=== PATIENT | female | born 1940 | race Caucasian/White ===

== ENCOUNTER 2019-09-23 03:46 | Inpatient (IN) | payer MEDICARE, OTHER ==
[~2019-09-23] VITALS: Ht 162.6 cm; Wt 125.2 kg
--- NOTE | 2019-09-23 04:00 | NUR ---
PT BIBRA C/O R ANKLE PAIN. PT HAD GLF. -KO. PT AXO4. 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 PENDING EVAL FROM .
--- NOTE | 2019-09-23 04:05 | NUR ---
XRAY AT BEDSIDE.
--- NOTE | 2019-09-23 04:36 | NUR ---
PT C/O MODERATE PAIN IN LOWER EXT. PER VERBAL MD ORDER, WILL ADMINISTER 800MG MOTRIN PO X1 NOW
[2019-09-23] MEDS ORDERED: IBUPROFEN 400 MG TABLET ONE (04:37)
[2019-09-23] MEDS ORDERED: IBUPROFEN 400 MG TABLET PO ONE (05:00)
[2019-09-23 05:11] LABS: BASOPHILS % (AUTO) 0.5 % (0.0-2.0); EOSINOPHILS % (AUTO) 1.4 % (0.0-6.0); HEMATOCRIT 29 % (33-45); HEMOGLOBIN 9.2 g/dL (11.5-14.8); LYMPHOCYTES # (AUTO) 1.1 /CMM (0.8-4.8); MEAN CORPUSCULAR HGB CONC 32 g/dl (31.0-36.0); MEAN CORPUSCULAR VOLUME 83 fL (82-100); MONOCYTES # (AUTO) 0.6 /CMM (0.1-1.30); MONOCYTES % (AUTO) 7.6 % (2.0-12.0); NEUTROPHILS # (AUTO) 6.2 /CMM (1.8-8.9); NEUTROPHILS % (AUTO) 76.5 % (43.0-81.0); PLATELET COUNT (AUTO) 244 /CMM (150-450); RED BLOOD CELL COUNT(AUTO) 3.45 MIL/uL (4.0-5.2); WHITE BLOOD COUNT (AUTO) 8.1 K/uL (4.3-11.0)
[2019-09-23 05:15] LABS: CALCIUM, SERUM 8.9 mg/dL (8.5-10.1); CARBON DIOXIDE 26 mmol/L (21-32); CHLORIDE 108 mmol/L (98-107); CREATININE 1.1 mg/dL (0.6-1.3); GLUCOSE 130 mg/dL (74-106); POTASSIUM 4.3 mmol/L (3.5-5.1); SODIUM SERUM 142 mmol/L (136-145); UREA NITROGEN, BLOOD 37 mg/dL (7-18)
--- NOTE | 2019-09-23 05:30 | NUR ---
DR. LYONS ON THE PHONE WITH [facility] [employer] Addendum: 09/23/19 at 0543 by HELEN Amendment undany in EDM - 09/23/19 at [address] DAT BRADY [employer] MAIL [employer]ER Addendum: 09/23/19 at 0544 by HELEN MAUREEN PANDA [facility] [employer]
--- NOTE | 2019-09-23 05:32 | NUR ---
PT RESTING IN BED, NAD NOTED. WILL CONTINUE TO MONITOR.
--- NOTE | 2019-09-23 05:34 | NUR ---
CALLED NURSING SUP FOR A BED
[2019-09-23] MEDS ORDERED: Z GUARD REMEDY 2 OZ OINT TP PRN (06:00)
[2019-09-23] MEDS ORDERED: ACETAMINOPHEN 325 MG TABLET PO PRN (06:00)
[2019-09-23] MEDS ORDERED: ZOLPIDEM TARTRATE 5 MG TABLET PO PRN (06:00)
[2019-09-23] MEDS ORDERED: ONDANSETRON HCL/PF 4 MG/2 ML VIAL IVP PRN (06:00)
[2019-09-23] MEDS ORDERED: MAG HYDROX/AL HYDROX/SIMETH 30 ML UDC PO PRN (06:00)
--- NOTE | 2019-09-23 06:38 | NUR ---
PT RESTING IN BED, NAD NOTED. WILL CONTINUE TO MONITOR.
--- NOTE | 2019-09-23 07:23 | NUR ---
REPORT GIVEN TO WES SANDHU FOR [facility].
--- NOTE | 2019-09-23 07:25 | NUR ---
RECEIVED ENDORSEMENT FROM [facility]
[2019-09-23] MEDS ORDERED: ERGO500040 PO (08:16)
[2019-09-23] MEDS ORDERED: CLON0.2T PO (08:16)
[2019-09-23] MEDS ORDERED: IBUP-1955 PO (08:16)
[2019-09-23] MEDS ORDERED: GLIP10TA11 PO (08:16)
[2019-09-23] MEDS ORDERED: PREG75CA76 PO (08:16)
[2019-09-23] MEDS ORDERED: ESOM40CA52 PO (08:16)
[2019-09-23] MEDS ORDERED: ROSU40TA23 PO (08:16)
[2019-09-23] MEDS ORDERED: CARV12.52 PO (08:16)
[2019-09-23] MEDS ORDERED: OXYB5TAB16 PO (08:16)
[2019-09-23] MEDS ORDERED: ASPI-1152 PO (08:16)
[2019-09-23] MEDS ORDERED: BENA10TA11 PO (08:16)
[2019-09-23] MEDS ORDERED: INSU100V7 SQ (08:18)
--- NOTE | 2019-09-23 08:20 | NUR ---
REPORT GIVEN TO SHERRI OF [facility]
--- NOTE | 2019-09-23 09:05 | NUR ---
RN NOTES Patient received on room air, no sob noted, patient denies pain at this time. Patients vital sign stable. L AC 18 patent at this time. Bed at the lowest setting, call light within reach, side rails up x2.
[2019-09-23] MEDS ORDERED: CLONIDINE HCL 0.1 MG TABLET PO PRN (09:30)
[2019-09-23] MEDS ORDERED: OXYBUTYNIN CHLORIDE 5 MG TABLET PO PRN (09:30)
[2019-09-23] MEDS: HYDROCODONE/APAP 5/325MG 1 EACH TABLET PO PRN (09:41)
[2019-09-23] MEDS: PREGABALIN 25 MG CAPSULE PO SCH (09:42)
[2019-09-23 16:00] VITALS: BP 164/103
[2019-09-23] MEDS: CARVEDILOL 12.5 MG TABLET PO SCH (16:24)
[2019-09-23] MEDS: IBUPROFEN 600 MG TABLET PO SCH (16:24)
[2019-09-23] MEDS ORDERED: BLOOD SUGAR DIAGNOSTIC 1 EACH STRIP IN SCH (17:30)
[2019-09-23] MEDS: glipiZIDE 10 MG TABLET PO SCH (17:37)
--- NOTE | 2019-09-23 18:28 | NUR ---
RN CLOSING NOTES Patient remains on room air, no sob noted, patient shows no s/s of pain at this time. Patient recently got a blood sugar check of 330 and MD was made aware, moderate sliding scale order and is awaiting for insulin. L AC 18 no IVF at this time. Surgery scheduled tomorrow at 1600. All consent form signed. Bed at the lowest setting, call light within reach, side rails up x2. Will give report to noC RN for [facility] bedside.
[2019-09-23] MEDS ORDERED: DEXTROSE 50%-WATER 50 ML DISP.SYRIN IV PRN (18:30)
--- NOTE | 2019-09-23 19:30 | NUR ---
MS RN OPENING NOTES PATIENT AWAKE AND RESTING IN BED. ALERT & ORIENTED X 4. SWAZI SPEAKING ONLY. NO S/S OF ACUTE RESPIRATORY DISTRESS. NO COMPLAINTS OF PAIN AT THIS TIME. RIGHT ANKLE OFFLOADED WITH ONE PILLOW. BED LOCKED, SIDE RAILS X 2, SEMI-WILSON'S POSITION, CALL LIGHT WITHIN REACH. WILL CONTINUE TO MONITOR.
[2019-09-23 20:00] VITALS: BP 147/76
[2019-09-23] MEDS: *INSULIN REGULAR(HUMULIN R)HUM 100 UNIT/ML VIAL SQ PRN (20:42)
[2019-09-23 20:47] VITALS: BP 147/78
[2019-09-23] MEDS: BLOOD SUGAR DIAGNOSTIC 1 EACH STRIP VI SCH (22:13)
[2019-09-23] MEDS: INSULIN GLARGINE, 100 UNIT/ML CARTRIDGE SQ SCH (22:18)
[2019-09-24] MEDS: HYDROCODONE/APAP 5/325MG 1 EACH TABLET PO PRN ×3 (01:56→22:39)
--- NOTE | 2019-09-24 01:56 | NUR ---
MS RN NOTES PATIENT COMPLAINING OF RIGHT LEG PAIN, RATED 8/10. ADMINISTERED PRN 1 TAB NORCO 5-325 PER PATIENT'S REQUEST. CALL LIGHT WITHIN REACH. WILL CONTINUE TO MONITOR EFFECTIVENESS OF PAIN MEDICATION.
[2019-09-24 06:20] LABS: BASOPHILS % (AUTO) 0.5 % (0.0-2.0); EOSINOPHILS % (AUTO) 2.1 % (0.0-6.0); HEMATOCRIT 26 % (33-45); HEMOGLOBIN 8.5 g/dL (11.5-14.8); LYMPHOCYTES # (AUTO) 1.4 /CMM (0.8-4.8); LYMPHOCYTES % (AUTO) 24.1 % (20.0-44.0); MEAN CORPUSCULAR HGB CONC 32 g/dl (31.0-36.0); MEAN CORPUSCULAR VOLUME 82 fL (82-100); MONOCYTES # (AUTO) 0.6 /CMM (0.1-1.30); NEUTROPHILS # (AUTO) 3.6 /CMM (1.8-8.9); NEUTROPHILS % (AUTO) 62.3 % (43.0-81.0); PLATELET COUNT (AUTO) 218 /CMM (150-450); RED BLOOD CELL COUNT(AUTO) 3.19 MIL/uL (4.0-5.2); WHITE BLOOD COUNT (AUTO) 5.7 K/uL (4.3-11.0)
[2019-09-24 06:33] LABS: CALCIUM, SERUM 8.3 mg/dL (8.5-10.1); CREATININE 1.2 mg/dL (0.6-1.3); MAGNESIUM 1.6 mg/dL (1.8-2.4); PHOSPHORUS 4.2 mg/dL (2.5-4.9); POTASSIUM 4.3 mmol/L (3.5-5.1)
--- NOTE | 2019-09-24 06:50 | NUR ---
MS RN CLOSING NOTES PATIENT SLEEPING IN BED, EASY TO AWAKEN. ALERT & ORIENTED X 4. ON ROOM AIR. CONSENTS FOR RIGHT TIBIAL ORIF SIGNED AND PLACED IN CHART. RIGHT LEG ELEVATED ON PILLOW. NO S/S OF ACUTE RESPIRATORY DISTRESS AND NO COMPLAINTS OF PAIN AT THIS TIME. IV ON RIGHT HAND, SIZE 20, INTACT & PATENT, HEP LOCKED. BED LOCKED, SEMI-WILSON'S POSITION, SIDE RAILS X2, CALL LIGHT WITHIN REACH. WILL ENDORSE TO DAY SHIFT NURSE TO FOLLOW PLAN OF CARE
[2019-09-24] MEDS: BLOOD SUGAR DIAGNOSTIC 1 EACH STRIP VI SCH ×4 (06:59→22:06)
--- NOTE | 2019-09-24 07:13 | NUR ---
MS RN NOTES PATIENT COMPLAINING OF RIGHT ANKLE PAIN, RATED 8/10. PER PATIENT'S REQUEST ADMINISTERED PRN NORCO 5/325. CALL LIGHT WITHIN REACH.
--- NOTE | 2019-09-24 07:26 | NUR ---
RN OPENING NOTES Patient received on room air, no sob noted, patient shows no s/s of pain at this time, remains a/o x4. ORIF scheduled at 1800. NPO after breakfast. Bed at the lowest setting, call light within reach, side rails up x2.
[2019-09-24 08:00] VITALS: BP 128/69
[2019-09-24] MEDS: PANTOPRAZOLE 40 MG TABLET.DR PO SCH (08:51)
[2019-09-24] MEDS: BENAZEPRIL HCL 10 MG TABLET PO SCH (08:52)
[2019-09-24] MEDS: CARVEDILOL 12.5 MG TABLET PO SCH ×2 (08:52→17:00)
[2019-09-24] MEDS: ATORVASTATIN 40 MG TABLET PO SCH (08:53)
[2019-09-24] MEDS: glipiZIDE 10 MG TABLET PO SCH ×2 (08:53→17:00)
[2019-09-24] MEDS: PREGABALIN 25 MG CAPSULE PO SCH (08:53)
[2019-09-24] MEDS: ASPIRIN EC 81 MG TABLET.DR PO SCH (08:53)
[2019-09-24] MEDS: IBUPROFEN 600 MG TABLET PO SCH ×2 (08:57→17:00)
[2019-09-24] MEDS ORDERED: ERGOCALCIFEROL (VITAMIN D 2) 50,000 UNIT CAPSULE PO SCH (09:00)
[2019-09-24] MEDS: Magnesium 1GM/D5W 100ML PREMIX 100 ML IV SCH ×2 (10:14→11:23)
[2019-09-24 16:00] VITALS: BP 141/70
--- NOTE | 2019-09-24 17:51 | NUR ---
RN CLOSING NOTES Patient awaiting surgery at this time. No sob noted, patient denies pain at this time. NPO except medications. Vital signs stable. Bed at the lowest setting, call light within reach, side rails up x2. Will give report to NOC RN for [facility] bedside.
--- NOTE | 2019-09-24 19:42 | NUR ---
MS RN OPENING NOTES Patient received resting in bed with family at bedside a/o x4, Emirati speaking. Stable on RA breathing even and unlabored, no signs of SOB. No current complaints of pain and no acute distress noted. IV located on right hand patent and intact. Safety precautions in place with bed in lowest position, breaks on, and call light within reach. Will continue to monitor.
[2019-09-24 20:00] VITALS: BP 147/77
[2019-09-24 20:47] VITALS: BP 144/77
[2019-09-24] MEDS: INSULIN GLARGINE, 100 UNIT/ML CARTRIDGE SQ SCH (22:36)
[2019-09-24] MEDS: *INSULIN REGULAR(HUMULIN R)HUM 100 UNIT/ML VIAL SQ PRN (22:39)
[2019-09-25] MEDS: HYDROCODONE/APAP 5/325MG 1 EACH TABLET PO PRN ×2 (05:22→14:43)
--- NOTE | 2019-09-25 06:01 | NUR ---
MS RN CLOSING NOTES PATIENT IS CURRENTLY RESTING IN BED, A/O X3 HONDURAN SPEAKING ONLY. PATIENT STABLE ON ROOM AIR, BREATHING EVEN AND UNLABORED. NO SOB, NO ACUTE DISTRESS NOTED. NO CURRENT COMPLAINTS OF PAIN OR DISCOMFORT. PATIENT HAS RIGHT ANKLE FRACTURE, ELEVATED BY PILLOW. IV LOCATED ON R HAND G#20. ALL NEEDS MET, PATIENT WAS KEPT CLEAN AND DRY. SAFETY PRECAUTIONS IN PLACE WITH BED IN LOWEST POSITION, BREAKS ON, AND CALL LIGHT WITHIN REACH. WILL ENDORSE TO ONCOMING SHIFT ABOUT [facility].
[2019-09-25 06:14] LABS: BASOPHILS % (AUTO) 0.4 % (0.0-2.0); HEMATOCRIT 27 % (33-45); HEMOGLOBIN 8.7 g/dL (11.5-14.8); LYMPHOCYTES # (AUTO) 1.4 /CMM (0.8-4.8); MEAN CORPUSCULAR HGB CONC 33 g/dl (31.0-36.0); MEAN CORPUSCULAR VOLUME 83 fL (82-100); MONOCYTES # (AUTO) 0.5 /CMM (0.1-1.30); MONOCYTES % (AUTO) 8.2 % (2.0-12.0); NEUTROPHILS # (AUTO) 4.4 /CMM (1.8-8.9); NEUTROPHILS % (AUTO) 67.4 % (43.0-81.0); PLATELET COUNT (AUTO) 228 /CMM (150-450); WHITE BLOOD COUNT (AUTO) 6.5 K/uL (4.3-11.0)
[2019-09-25 06:19] LABS: CALCIUM, SERUM 8.3 mg/dL (8.5-10.1); CREATININE 1.3 mg/dL (0.6-1.3); MAGNESIUM 2.2 mg/dL (1.8-2.4); POTASSIUM 4.8 mmol/L (3.5-5.1)
--- NOTE | 2019-09-25 07:00 | NUR ---
MS/RN Opening note Patient received AO x 3, able to response all stimuli. Respiratory even and unlabored, in room air. c/o pain on right ankle, administered Motrin and no further c/o pain on right ankle, and elevated by pillow. Skin is worm to touch, clean/dry. IV site intact. Kept low position of bed with elevated HOB. Call light within reach, will continue to monitor.
[2019-09-25] MEDS: PANTOPRAZOLE 40 MG TABLET.DR PO SCH (07:30)
[2019-09-25 07:54] VITALS: BP 153/70
[2019-09-25] MEDS: BLOOD SUGAR DIAGNOSTIC 1 EACH STRIP VI SCH ×4 (07:57→21:12)
[2019-09-25 08:00] VITALS: BP 153/70
[2019-09-25] MEDS: CARVEDILOL 12.5 MG TABLET PO SCH ×2 (09:00→17:13)
[2019-09-25] MEDS: BENAZEPRIL HCL 10 MG TABLET PO SCH ×2 (09:00→10:51)
[2019-09-25] MEDS: IBUPROFEN 600 MG TABLET PO SCH ×3 (09:00→17:12)
[2019-09-25] MEDS: PREGABALIN 25 MG CAPSULE PO SCH (09:00)
[2019-09-25] MEDS: glipiZIDE 10 MG TABLET PO SCH ×2 (09:00→17:09)
[2019-09-25] MEDS: ASPIRIN EC 81 MG TABLET.DR PO SCH (09:00)
[2019-09-25] MEDS: ATORVASTATIN 40 MG TABLET PO SCH (09:00)
[2019-09-25] MEDS ORDERED: MORPHINE SULFATE INJ 2 MG/ML DISP.SYRIN IM PRN (10:30)
[2019-09-25] MEDS: MAGNESIUM HYDROXIDE 30 ML UDC PO PRN (10:51)
[2019-09-25] MEDS: *INSULIN REGULAR(HUMULIN R)HUM 100 UNIT/ML VIAL SQ PRN ×2 (12:06→21:19)
--- NOTE | 2019-09-25 14:30 | NUR ---
Seen by Dr. Anderson who spoke with family discussed about surgery or orthopedic cast intervention.
--- NOTE | 2019-09-25 15:20 | NUR ---
Patient in placed fiberglass cast on right leg done by Dr. lucas. Pt denies pain or discomfort of right leg, no s/s of compartment syndrome, warm to touch on right toes. Pt will take CAT SCAN tonight. Will continue to monitor.
[2019-09-25 16:00] VITALS: BP 135/70
[2019-09-25] MEDS: INSULIN REGULAR, HUMAN 100 UNIT/ML 3 ML VIAL SQ PRN (17:12)
--- NOTE | 2019-09-25 18:53 | NUR ---
MS/RN Closing note Pt in bed comfortably, denies pain or any discomfort. Kept elevated right leg by blankets. Skin is warm to touch, clean/dry, christopher care provided. Respiratory even and unlabored in room air. Call light within reach, will continue to monitor.
--- NOTE | 2019-09-25 19:10 | NUR ---
MS RN RECEIVE PT IN BED A/O X 3, STABLE AND NOT IN DISTRESS, CAST IN PLACE IN R LEG. SAFETY MEASURES IN PLACE. WILL CONTINUE TO MONITOR.
[2019-09-25 19:55] VITALS: BP 126/63
[2019-09-25 20:03] VITALS: BP 126/63
[2019-09-25] MEDS: INSULIN GLARGINE, 100 UNIT/ML CARTRIDGE SQ SCH (21:17)
[2019-09-26] MEDS: HYDROCODONE/APAP 5/325MG 1 EACH TABLET PO PRN ×2 (00:13→20:56)
[2019-09-26] MEDS: BLOOD SUGAR DIAGNOSTIC 1 EACH STRIP VI SCH ×4 (06:04→21:04)
[2019-09-26] MEDS: INSULIN REGULAR, HUMAN 100 UNIT/ML 3 ML VIAL SQ PRN ×3 (06:04→17:14)
--- NOTE | 2019-09-26 06:32 | NUR ---
PT SLEPT WELL. NO SOB, NO S/S OF DISTRESS, MONITORED FOR PAIN. NO C/O PAIN AT THIS TIME. FIBERGLASS CAST ON RIGHT LEG WITH GOOD CIRCULATION. NEEDS ATTENDED AND ANTICIPATED, KEPT CLEAN, DRY AND COMFORTABLE. AM CARE RENDERED. SAFETY MEASURES AT ALL TIMES. WILL ENDORSE POC Addendum: 09/26/19 at 0638 by DALLAS CUELLO RN ASSISTED REPOSITION EVERY 2 HOURS.
[2019-09-26 06:34] LABS: BASOPHILS % (AUTO) 0.4 % (0.0-2.0); EOSINOPHILS % (AUTO) 2.4 % (0.0-6.0); HEMATOCRIT 26 % (33-45); HEMOGLOBIN 8.4 g/dL (11.5-14.8); LYMPHOCYTES % (AUTO) 17.4 % (20.0-44.0); MEAN CORPUSCULAR HGB CONC 32 g/dl (31.0-36.0); MEAN CORPUSCULAR VOLUME 83 fL (82-100); MONOCYTES # (AUTO) 0.5 /CMM (0.1-1.30); NEUTROPHILS # (AUTO) 4.2 /CMM (1.8-8.9); NEUTROPHILS % (AUTO) 70.8 % (43.0-81.0); PLATELET COUNT (AUTO) 230 /CMM (150-450); RED BLOOD CELL COUNT(AUTO) 3.16 MIL/uL (4.0-5.2)
[2019-09-26 07:06] LABS: CALCIUM, SERUM 8.3 mg/dL (8.5-10.1); CREATININE 1.2 mg/dL (0.6-1.3); MAGNESIUM 2.2 mg/dL (1.8-2.4); PHOSPHORUS 3.2 mg/dL (2.5-4.9); POTASSIUM 5.3 mmol/L (3.5-5.1)
[2019-09-26] MEDS: PANTOPRAZOLE 40 MG TABLET.DR PO SCH (07:19)
--- NOTE | 2019-09-26 07:29 | NUR ---
MS/RN - Assessment Patient is awake, A/O x 4, here for right tibial fracture, long leg cast in place, elevated on pillows, denies pain at this time, stable on room air. Per Dr. Anderson, if CT shows intraarticular fracture, may need surgical intervention. If not, and alignment on CT is acceptable, can proceed with nonoperative management with x-rays every week to check fracture alignment, he discussed this with patient and her family. They understand. She has diabetes and is at great risk for surgical wound breakdown. if we can avoid surgery that would be preferred. Will follow up after CT scan. The family understands the surgical plan will hinge on CT results. Skin on BLE is warm to touch, denies numbness or tingling sensation on both lower ext, non-weight bearing on RLE. Saline lock on the right hand is patent, intact, with no signs of infiltration. Labs reviewed, noted with high potassium, will notify Md. Fall and aspiration precautions maintained. All needs attended. Will continue with current plan of care.
[2019-09-26 08:00] VITALS: BP 149/85
[2019-09-26] MEDS: glipiZIDE 10 MG TABLET PO SCH ×2 (08:29→16:40)
[2019-09-26] MEDS: CARVEDILOL 12.5 MG TABLET PO SCH ×2 (08:30→16:56)
[2019-09-26] MEDS: PREGABALIN 25 MG CAPSULE PO SCH (08:30)
[2019-09-26] MEDS: BENAZEPRIL HCL 10 MG TABLET PO SCH (08:30)
[2019-09-26] MEDS: IBUPROFEN 600 MG TABLET PO SCH ×2 (08:30→16:40)
[2019-09-26] MEDS: ATORVASTATIN 40 MG TABLET PO SCH (08:30)
[2019-09-26] MEDS: ASPIRIN EC 81 MG TABLET.DR PO SCH (08:30)
[2019-09-26] MEDS: MAGNESIUM HYDROXIDE 30 ML UDC PO PRN (10:50)
--- NOTE | 2019-09-26 11:00 | NUR ---
MS/RN - Notes Patient is c/o no bowel movement x 4 days now, MOM given as ordered.
[2019-09-26 16:00] VITALS: BP 159/93
[2019-09-26] MEDS ORDERED: NA PHOS,M-B/NA PHOS,DI-BA 1 EA ENEMA RC PRN (16:30)
--- NOTE | 2019-09-26 18:28 | NUR ---
MS/RN - End of shift summary No significant change in condition seen, pain well controlled, stable on room air, had a large bowel movement today. Will continue with current plan of care.
--- NOTE | 2019-09-26 19:18 | NUR ---
MS RN RECEIVE PT IN BED WATCHING TV A/O X 3, STABLE AND NOT IN DISTRESS, CAST IN PLACE IN R LEG. ELEVATED LEG WITH BLANKETS. SAFETY MEASURES IN PLACE. WILL CONTINUE TO MONITOR.
[2019-09-26 20:00] VITALS: BP 140/74
[2019-09-26] MEDS: INSULIN GLARGINE, 100 UNIT/ML CARTRIDGE SQ SCH (21:09)
[2019-09-26] MEDS: *INSULIN REGULAR(HUMULIN R)HUM 100 UNIT/ML VIAL SQ PRN (21:10)
--- NOTE | 2019-09-27 01:01 | NUR ---
MS RN NOTES RECEIVED A CALL FROM [facility], REQUESTING FOR RECORDS (FACESHEET) OF THE PATIENT REGARDING POSSIBLE TRANSFER TO [facility]. PT SLEEPING AT THIS TIME. UNABLE TO PROVIDE AUTHORIZATION AT THIS TIME. WILL F/U WITH CASE MANAGEMENT REGARDING POSSIBLE TRANSFER. EXERCISE TEACHER AWARE.
[2019-09-27] MEDS: HYDROCODONE/APAP 5/325MG 1 EACH TABLET PO PRN ×2 (03:38→20:27)
[2019-09-27] MEDS: BLOOD SUGAR DIAGNOSTIC 1 EACH STRIP VI SCH ×4 (06:06→21:20)
[2019-09-27] MEDS: INSULIN REGULAR, HUMAN 100 UNIT/ML 3 ML VIAL SQ PRN ×3 (06:07→17:50)
--- NOTE | 2019-09-27 06:10 | NUR ---
PT ASLEEP AND EASILY AWAKEN, NO SIGNIFICANT CHANGES, PAIN WELL CONTROLLED. NO C/O PAIN AT THIS TIME. AM CARE RENDERED. STABLE. CAST ON RIGHT LEG WITH GOOD CIRCULATION. KEPT CLEAN, DRY AND COMFORTABLE. NEEDS ATTENDED AND ANTICIPATED AT ALL TIMES. ASSISTED REPOSITION EVERY 2 HOURS. GOOD SKIN CARE AT ALL TIMES. OFFLOAD HEELS AND ELBOWS. SAFETY MEASURES AT ALL TIMES. WILL ENDORSE POC
[2019-09-27 06:43] LABS: BASOPHILS % (AUTO) 0.6 % (0.0-2.0); EOSINOPHILS % (AUTO) 2.7 % (0.0-6.0); HEMATOCRIT 25 % (33-45); HEMOGLOBIN 8.2 g/dL (11.5-14.8); LYMPHOCYTES # (AUTO) 1.2 /CMM (0.8-4.8); LYMPHOCYTES % (AUTO) 22.7 % (20.0-44.0); MEAN CORPUSCULAR HGB CONC 33 g/dl (31.0-36.0); MEAN CORPUSCULAR VOLUME 83 fL (82-100); MONOCYTES # (AUTO) 0.4 /CMM (0.1-1.30); NEUTROPHILS # (AUTO) 3.6 /CMM (1.8-8.9); PLATELET COUNT (AUTO) 231 /CMM (150-450); RED BLOOD CELL COUNT(AUTO) 3.04 MIL/uL (4.0-5.2); WHITE BLOOD COUNT (AUTO) 5.5 K/uL (4.3-11.0)
[2019-09-27 07:21] LABS: CALCIUM, SERUM 8.4 mg/dL (8.5-10.1); CREATININE 1.1 mg/dL (0.6-1.3); MAGNESIUM 2.3 mg/dL (1.8-2.4); POTASSIUM 5.2 mmol/L (3.5-5.1)
--- NOTE | 2019-09-27 07:30 | NUR ---
alert and oriented 4,non-british speaking and very cooperative.
[2019-09-27 08:00] VITALS: BP 155/86
[2019-09-27] MEDS: IBUPROFEN 600 MG TABLET PO SCH ×2 (08:28→17:29)
[2019-09-27] MEDS: ASPIRIN EC 81 MG TABLET.DR PO SCH (08:28)
[2019-09-27] MEDS: PREGABALIN 25 MG CAPSULE PO SCH (08:28)
[2019-09-27] MEDS: glipiZIDE 10 MG TABLET PO SCH ×2 (08:29→17:29)
[2019-09-27] MEDS: PANTOPRAZOLE 40 MG TABLET.DR PO SCH (08:29)
[2019-09-27] MEDS: BENAZEPRIL HCL 10 MG TABLET PO SCH (08:29)
[2019-09-27] MEDS: ATORVASTATIN 40 MG TABLET PO SCH (08:29)
[2019-09-27] MEDS: CARVEDILOL 12.5 MG TABLET PO SCH ×2 (08:30→17:00)
[2019-09-27] MEDS ORDERED: DEXTROSE 50%-WATER 50 ML DISP.SYRIN IVP ONE (10:30)
[2019-09-27] MEDS ORDERED: Calcium Gluconate 1GM/10ML 4.65 MEQ in IV NS 0.9% 40 ML IV ONE (10:30)
[2019-09-27] MEDS ORDERED: INSULIN REGULAR, HUMAN 100 UNIT/ML 3 ML VIAL IV ONE (10:30)
--- NOTE | 2019-09-27 10:30 | NUR ---
family at bedside all day.
[2019-09-27 13:00] VITALS: BP 110/56
--- NOTE | 2019-09-27 13:00 | NUR ---
HAD INSULIN,DEXTROSE AND CA GLUCONATE IV FOR PURPOSE OF LOWERING POTASSIUM.
--- NOTE | 2019-09-27 13:00 | NUR ---
iv leaking,removed and restarted in rt. inner hand with #22 angio.pt. tolerated well.
[2019-09-27 16:00] VITALS: BP 112/61
--- NOTE | 2019-09-27 18:41 | NUR ---
AT THIS TIME STILL AWAITING ARRANGEMENTS TO BE MADE FOR PT. TRANSFER.AWAITING ACCEPTANCE.
[2019-09-27] MEDS ORDERED: NA P133E RC (19:11)
[2019-09-27] MEDS ORDERED: *INS REG SQ (19:11)
[2019-09-27] MEDS ORDERED: INSU100V28 SQ (19:11)
[2019-09-27] MEDS ORDERED: MAGN400O6 PO (19:11)
[2019-09-27] MEDS ORDERED: ACET325T53 PO (19:11)
[2019-09-27] MEDS ORDERED: ONDA4VIA23 IVP (19:11)
[2019-09-27] MEDS ORDERED: MAG30ORA PO (19:11)
[2019-09-27] MEDS ORDERED: Morphine Sulfate Inj IM (19:11)
[2019-09-27 19:30] VITALS: BP 126/65
--- NOTE | 2019-09-27 19:30 | NUR ---
MS RN NOTES PATIENT IN BED, AWAKE, ALERT AND ORIENTED X 4. BREATHING EVEN AND UNLABORED ON ROOM AIR. DENIES ACUTE RESPIRATORY DISTRESS NO ACUTE PAIN. IV ON RIGHT HAND 22G SALINE LOCK. ITS CLEAN, DRY AND INTACT. NO REDNESS NO INFILTRATION. SAFETY PRECAUTIONS IN PLACE. BED IN LOWEST POSITION, LOCKED, AND CALL LIGHT KEPT WITHIN REACH. WILL CONTINUE TO MONITOR.
[2019-09-27 20:00] VITALS: BP 126/65
--- NOTE | 2019-09-27 20:24 | NUR ---
MS RN NOTES PATIENT COMPLAINED OF THROBBING PAIN 5/10. PATIENT GIVEN NORCO 2023 PRN. WILL CONTINUE TO MONITOR.
[2019-09-27] MEDS: INSULIN GLARGINE, 100 UNIT/ML CARTRIDGE SQ SCH ×2 (21:21→21:38)
[2019-09-27] MEDS: *INSULIN REGULAR(HUMULIN R)HUM 100 UNIT/ML VIAL SQ PRN ×2 (21:24→21:38)
--- NOTE | 2019-09-28 00:20 | NUR ---
MS RN NOTES RECEIVED CALL FROM [facility] FROM [facility]ACEMENT MANAGEMENT. NO AVAILABLE BEDS, WILL CALL TOMORROW FOR UPDATES. WILL FOLLOW UP.
[2019-09-28 06:43] LABS: BASOPHILS % (AUTO) 0.5 % (0.0-2.0); EOSINOPHILS % (AUTO) 3.9 % (0.0-6.0); HEMATOCRIT 27 % (33-45); HEMOGLOBIN 8.7 g/dL (11.5-14.8); LYMPHOCYTES # (AUTO) 1.1 /CMM (0.8-4.8); MEAN CORPUSCULAR HGB CONC 32 g/dl (31.0-36.0); MEAN CORPUSCULAR VOLUME 83 fL (82-100); MONOCYTES # (AUTO) 0.4 /CMM (0.1-1.30); NEUTROPHILS # (AUTO) 3.4 /CMM (1.8-8.9); NEUTROPHILS % (AUTO) 65.6 % (43.0-81.0); PLATELET COUNT (AUTO) 259 /CMM (150-450); RED BLOOD CELL COUNT(AUTO) 3.24 MIL/uL (4.0-5.2); WHITE BLOOD COUNT (AUTO) 5.1 K/uL (4.3-11.0)
[2019-09-28 07:00] LABS: CALCIUM, SERUM 8.5 mg/dL (8.5-10.1); CREATININE 1.2 mg/dL (0.6-1.3); MAGNESIUM 2.2 mg/dL (1.8-2.4); PHOSPHORUS 4.5 mg/dL (2.5-4.9); POTASSIUM 5.4 mmol/L (3.5-5.1)
--- NOTE | 2019-09-28 07:31 | NUR ---
MS RN NOTES PATIENT COMPLAINING OF PAIN 7/10 ON R FOOT. GIVEN NORCO PRN AT 0731. WILL CONTINUE TO MONITOR.
[2019-09-28] MEDS: HYDROCODONE/APAP 5/325MG 1 EACH TABLET PO PRN ×2 (07:33→15:39)
--- NOTE | 2019-09-28 07:45 | NUR ---
MS RN NOTES PATIENT IN BED, AWAKE, ALERT AND ORIENTED X 4. BREATHING EVEN AND UNLABORED ON ROOM AIR. DENIES ACUTE RESPIRATORY DISTRESS NO ACUTE PAIN. IV ON RIGHT HAND 22G SALINE LOCK. ITS CLEAN, DRY AND INTACT. NO REDNESS NO INFILTRATION. ALL DUE MEDICATIONS GIVEN. SAFETY PRECAUTIONS IN PLACE. BED IN LOWEST POSITION, LOCKED, AND CALL LIGHT KEPT WITHIN REACH. WILL ENDORSE TO ONCOMING NURSE.
[2019-09-28 08:00] VITALS: BP 156/76
[2019-09-28] MEDS: ATORVASTATIN 40 MG TABLET PO SCH (08:35)
[2019-09-28] MEDS: glipiZIDE 10 MG TABLET PO SCH ×2 (08:35→18:39)
[2019-09-28] MEDS: CARVEDILOL 12.5 MG TABLET PO SCH ×2 (08:37→18:40)
[2019-09-28] MEDS: BENAZEPRIL HCL 10 MG TABLET PO SCH (08:38)
[2019-09-28] MEDS: IBUPROFEN 600 MG TABLET PO SCH ×2 (08:38→18:40)
[2019-09-28] MEDS: ASPIRIN EC 81 MG TABLET.DR PO SCH (08:43)
[2019-09-28] MEDS: PANTOPRAZOLE 40 MG TABLET.DR PO SCH (08:43)
[2019-09-28] MEDS: PREGABALIN 25 MG CAPSULE PO SCH (08:43)
[2019-09-28] MEDS: BLOOD SUGAR DIAGNOSTIC 1 EACH STRIP VI SCH ×4 (08:46→22:11)
--- NOTE | 2019-09-28 11:21 | NUR ---
MS/RN RECIEVED PATIENT IN BED, AWAKE, ALERT AND ORIENTED X 4. BREATHING EVEN AND UNLABORED ON ROOM AIR. DENIES ACUTE RESPIRATORY DISTRESS NO ACUTE PAIN. IV ON RIGHT HAND 22G SALINE LOCK. ITS CLEAN, DRY AND INTACT. NO REDNESS NO INFILTRATION. ALL DUE MEDICATIONS GIVEN. SAFETY PRECAUTIONS IN PLACE. BED IN LOWEST POSITION, LOCKED, AND CALL LIGHT KEPT WITHIN REACH.
[2019-09-28] MEDS: INSULIN REGULAR, HUMAN 100 UNIT/ML 3 ML VIAL SQ PRN (13:01)
[2019-09-28 16:00] VITALS: BP 137/59
[2019-09-28] MEDS: *INSULIN REGULAR(HUMULIN R)HUM 100 UNIT/ML VIAL SQ PRN ×2 (18:52→22:16)
--- NOTE | 2019-09-28 19:22 | NUR ---
MS/RN PATIENT IN BED, AWAKE, ALERT AND ORIENTED X 4. BREATHING EVEN AND UNLABORED ON ROOM AIR. DENIES ACUTE RESPIRATORY DISTRESS NO ACUTE PAIN. ALL DUE MEDICATIONS GIVEN. SAFETY PRECAUTIONS IN PLACE. BED IN LOWEST POSITION, LOCKED, AND CALL LIGHT KEPT WITHIN REACH. WILL ENDORSE TO ONCOMING NURSE.
[2019-09-28 20:00] VITALS: BP 147/76
[2019-09-28] MEDS: INSULIN GLARGINE, 100 UNIT/ML CARTRIDGE SQ SCH (22:00)
--- NOTE | 2019-09-28 23:53 | NUR ---
MS RN NOTES PATIENT DISCHARGE TO [facility]. PATIENT IS BREATHING EVEN AND UNLABORED ON ROOM AIR. DENIES ACUTE RESPIRATORY DISTRESS, NO ACUTE PAIN. IV IN RIGHT HAND 22G, CLEAN DRY AND INTACT. NO SIGNS OF REDNESS, NO INFILTRATION. ID TAKEN OFF. LEFT WITH AMBULANCE. NO NEW SKIN BREAKDOWNS, NO MISSING BELONGINGS. DOC AWARE OF DISCHARGE.
== END 2019-09-28 22:50 | disposition short-term general hospital (02) | DRG 563 ==
LOC: ER 03:48 → MED 07:51
PROVIDERS: ADMIT Family Medicine; ATTEND Registered Nurse
DX: S82.861A Displaced Maisonneuve's fracture of right leg, initial encounter for closed fracture (principal); E66.9 Obesity, unspecified; S82.251A Displaced comminuted fracture of shaft of right tibia, initial encounter for closed fracture; W06.XXXA Fall from bed, initial encounter; Y92.003 Bedroom of unspecified non-institutional (private) residence as the place of occurrence of the external cause; Z79.4 Long term (current) use of insulin; K21.9 Gastro-esophageal reflux disease without esophagitis; N32.81 Overactive bladder; E11.9 Type 2 diabetes mellitus without complications; D63.8 Anemia in other chronic diseases classified elsewhere; E11.65 Type 2 diabetes mellitus with hyperglycemia; E78.5 Hyperlipidemia, unspecified; E87.5 Hyperkalemia; I10 Essential (primary) hypertension; M17.10 Unilateral primary osteoarthritis, unspecified knee; M85.80 Other specified disorders of bone density and structure, unspecified site; M19.079 Primary osteoarthritis, unspecified ankle and foot; S82.63XA Displaced fracture of lateral malleolus of unspecified fibula, initial encounter for closed fracture; E55.9 Vitamin D deficiency, unspecified
CPT/HCPCS: 36415; 73590-TC; 73610-TC; 73630-TC; 73700-TC; 80048-TC; 82962-TC; 83735-TC; 84100-TC; 84132-TC; 85025-TC; 85730-TC; 86850-TC; 87081-TC; A4216; G0378; J0610; J1815; J3475; J7050

== ENCOUNTER 2025-05-18 13:34 | Inpatient (IN) | payer MEDICARE, OTHER ==
[~2025-05-18] VITALS: Ht 165.1 cm; Wt 102.1 kg
[~2025-05-18 13:34] MED LIST: *INS REG SQ; ACET325T53 PO; ASPI-1420 PO; BENA10TA74 PO; CARV12.52 PO; CLON0.2T PO; ERGO500040 PO; ESOM40CA52 PO; GLIP10TA11 PO; IBUP-1955 PO; INSU100V28 SQ; INSU100V7 SQ; MAG30ORA PO; MAGN400O6 PO; Morphine Sulfate Inj IM; NA P133E RC; ONDA4VIA23 IVP; OXYB5TAB16 PO; PREG-58 PO; ROSU40TA23 PO
[2025-05-18] MEDS ORDERED: IBUPROFEN 400 MG TABLET ONE (14:17)
[2025-05-18] MEDS ORDERED: CYCLOBENZAPRINE 10 MG TABLET ONE (14:17)
[2025-05-18] MEDS: CYCLOBENZAPRINE 10 MG TABLET PO ONE (14:20)
[2025-05-18] MEDS: IBUPROFEN 400 MG TABLET PO ONE (14:20)
[2025-05-18 16:24] LABS: PLATELET COUNT (AUTO) 151 K/uL (150-450); RED BLOOD CELL COUNT(AUTO) 3.52 MIL/uL (4.0-5.2); RED CELL DISTRIBUTION WIDTH 14.7 % (11.5-15.0); WHITE BLOOD COUNT (AUTO) 5.1 K/uL (4.3-11.0)
[2025-05-18] MEDS: oxyCODONE/APAP (5/325 MG) 1 UDTAB TABLET PO ONE (16:30)
[2025-05-18] MEDS ORDERED: oxyCODONE/APAP (5/325 MG) 1 UDTAB TABLET ONE (16:30)
[2025-05-18 16:35] LABS: CALCIUM, SERUM 8.6 mg/dL (8.5-10.1); CREATININE 1.6 mg/dL (0.6-1.3); SODIUM SERUM 139.0 mmol/L (136-145); UREA NITROGEN, BLOOD 41.0 mg/dL (7-18)
[2025-05-18] MEDS ORDERED: NPH,100V2 SQ (16:36)
[2025-05-18] MEDS ORDERED: QUET50TA PO (16:36)
[2025-05-18] MEDS ORDERED: DOCU100T2 PO (16:36)
[2025-05-18] MEDS ORDERED: SITA25TA PO (16:36)
[2025-05-18] MEDS ORDERED: OMEP40CA21 PO (16:36)
[2025-05-18] MEDS ORDERED: CLON0.1T PO (16:36)
[2025-05-18] MEDS ORDERED: MAGN400T26 PO (16:36)
[2025-05-18] MEDS ORDERED: GABA-532 PO (16:36)
[2025-05-18] MEDS ORDERED: FURO-145 PO (16:36)
[2025-05-18] MEDS ORDERED: ALEN70TA80 PO (16:36)
[2025-05-18 16:44] LABS: ASPARTATE AMINOTRANSFERASE 33.0 U/L (15-37); TOTAL PROTEIN, SERUM 6.5 g/dL (6.4-8.2)
[2025-05-18 16:46] LABS: APPEARANCE,URINE CLOUDY (CLEAR); BLOOD, URINE 1+ Ery/uL (NEGATIVE); LEUKOCYTE ESTERASE ,URINE NEGATIVE (NEGATIVE); NITRITE, URINE NEGATIVE (NEGATIVE); UGLUCOSE 2+ mg/dL (NEGATIVE)
[2025-05-18 16:49] LABS: ADD URINE CULTURE YES
[2025-05-18] MEDS ORDERED: CEFTRIAXONE 1GM BAG (ER ONLY) 50 ML IV ONE (17:38)
[2025-05-18] MEDS: CEFTRIAXONE 1GM BAG (ER ONLY) 1 GM/50 ML PIGGYBACK IV ONE (17:46)
[2025-05-18 20:00] VITALS: BP 162/69; TEMP 97.2; O2SAT 92
[2025-05-18] MEDS ORDERED: ACETAMINOPHEN 325 MG TABLET PO PRN (22:00)
[2025-05-18] MEDS ORDERED: MAG HYDROX/AL HYDROX/SIMETH 30 ML UDC PO PRN (22:00)
[2025-05-18] MEDS ORDERED: ONDANSETRON HCL/PF 4 MG/2 ML VIAL IVP PRN (22:00)
[2025-05-18] MEDS ORDERED: TRAMADOL HCL 50 MG TABLET PO PRN (22:00)
[2025-05-18] MEDS ORDERED: MAGNESIUM HYDROXIDE 30 ML UDC PO PRN (22:00)
[2025-05-19 07:30] VITALS: BP 179/79; TEMP 97.9; O2SAT 93
[2025-05-19] MEDS: PANTOPRAZOLE 40 MG TABLET.DR PO SCH (07:35)
[2025-05-19 07:39] LABS: ASPARTATE AMINOTRANSFERASE 30.0 U/L (15-37); CALCIUM, SERUM 9.2 mg/dL (8.5-10.1); CREATININE 1.6 mg/dL (0.6-1.3); PHOSPHORUS 4.2 mg/dL (2.5-4.9); SODIUM SERUM 143.0 mmol/L (136-145); TOTAL PROTEIN, SERUM 6.9 g/dL (6.4-8.2); UREA NITROGEN, BLOOD 39.0 mg/dL (7-18)
[2025-05-19] MEDS: hydrALAZINE HCL IV 20 MG VIAL IV PRN (08:14)
[2025-05-19 08:19] LABS: LDL 53.0 mg/dL (0-99)
[2025-05-19 08:26] LABS: PLATELET COUNT (AUTO) 174 K/uL (150-450); RED BLOOD CELL COUNT(AUTO) 3.72 MIL/uL (4.0-5.2); RED CELL DISTRIBUTION WIDTH 14.5 % (11.5-15.0); WHITE BLOOD COUNT (AUTO) 6.5 K/uL (4.3-11.0)
[2025-05-19] MEDS ORDERED: DEXTROSE 50%-WATER 50 ML DISP.SYRIN IV PRN (08:30)
[2025-05-19] MEDS ORDERED: HYDROCODONE/APAP 5/325MG TABLET PO PRN (09:00)
[2025-05-19] MEDS ORDERED: CYCLOBENZAPRINE 10 MG TABLET PO PRN (09:00)
[2025-05-19] MEDS ORDERED: CEFTRIAXONE 1 G in IV D5W 50 ML IV SCH (09:00)
[2025-05-19] MEDS: ATORVASTATIN 40 MG TABLET PO SCH (09:38)
[2025-05-19] MEDS: DOCUSATE SODIUM 100 MG CAPSULE PO SCH (09:38)
[2025-05-19] MEDS: CARVEDILOL 12.5 MG TABLET PO SCH (09:38)
[2025-05-19] MEDS: ASPIRIN EC 81 MG TABLET.DR PO SCH (09:39)
[2025-05-19] MEDS: GABAPENTIN 100 MG CAPSULE PO SCH (09:39)
[2025-05-19] MEDS: MAGNESIUM OXIDE 400 MG TABLET PO SCH (09:41)
[2025-05-19] MEDS: OXYBUTYNIN CHLORIDE 5 MG TABLET PO SCH (09:42)
[2025-05-19] MEDS: LINAGLIPTIN 5 MG TABLET PO SCH (09:42)
[2025-05-19] MEDS: INSULIN NPH, HUMAN ISOPHANE 100 UNIT/ML VIAL SQ SCH (09:49)
[2025-05-19] MEDS: BLOOD SUGAR DIAGNOSTIC 1 EACH STRIP IN SCH (12:18)
[2025-05-19 12:27] LABS: APPEARANCE,URINE TURBID (CLEAR); BLOOD, URINE 2+ Ery/uL (NEGATIVE); LEUKOCYTE ESTERASE ,URINE 2+ (NEGATIVE); NITRITE, URINE NEGATIVE (NEGATIVE); UGLUCOSE 2+ mg/dL (NEGATIVE)
[2025-05-19] MEDS: INSULIN REGULAR, HUMAN 100 UNIT/ML 3 ML VIAL SQ PRN (12:35)
[2025-05-19 12:38] LABS: ADD URINE CULTURE YES; SQUAMOUS EPITHELIAL CELL,UR 0-2 /HPF (None Seen)
[2025-05-19 12:46] LABS: CREATININE, URINE 27.0 MG/DL (30.0-125.0); URINE SODIUM, RANDOM 146.0 mmol/l (40-220); URINE TOTAL PROTEIN 257.6 mg/dL (0-11.9)
[2025-05-19 13:43] LABS: EOSINOPHIL,URINE None Seen
[2025-05-19] MEDS: CEFTRIAXONE 1 G in IV D5W 50 ML IV SCH (17:09)
[2025-05-19 20:00] VITALS: BP 133/64; TEMP 97.5; O2SAT 94
[2025-05-19] MEDS: QUETIAPINE FUMARATE 25 MG TABLET PO SCH (21:54)
[2025-05-20 10:06] LABS: PLATELET COUNT (AUTO) 174 K/uL (150-450); RED BLOOD CELL COUNT(AUTO) 3.73 MIL/uL (4.0-5.2); RED CELL DISTRIBUTION WIDTH 14.7 % (11.5-15.0); WHITE BLOOD COUNT (AUTO) 4.4 K/uL (4.3-11.0)
[2025-05-20 10:15] LABS: ASPARTATE AMINOTRANSFERASE 33.0 U/L (15-37); CALCIUM, SERUM 9.0 mg/dL (8.5-10.1); CREATINE KINASE, TOTAL 65.0 U/L (26-192); CREATININE 2.0 mg/dL (0.6-1.3); PHOSPHORUS 5.5 mg/dL (2.5-4.9); SODIUM SERUM 143.0 mmol/L (136-145); TOTAL PROTEIN, SERUM 6.6 g/dL (6.4-8.2); UREA NITROGEN, BLOOD 43.0 mg/dL (7-18)
[2025-05-20 16:08] VITALS: BP 156/70; TEMP 98; O2SAT 94
[2025-05-20 22:00] VITALS: BP 132/98; TEMP 98.5; O2SAT 94
[2025-05-21 07:30] VITALS: BP 176/72; TEMP 98.2; O2SAT 93
[2025-05-21 08:07] LABS: PTH, INTACT 45 pg/mL (15-65)
[2025-05-21 09:32] VITALS: BP 161/73
[2025-05-21 10:07] LABS: FOLIC ACID 15.4 ng/mL (>3.0)
[2025-05-21 10:37] LABS: CALCIUM, SERUM 8.6 mg/dL (8.5-10.1); CREATININE 2.1 mg/dL (0.6-1.3); SODIUM SERUM 138.0 mmol/L (136-145); UREA NITROGEN, BLOOD 46.0 mg/dL (7-18)
[2025-05-21] MEDS: SODIUM ZIRCONIUM CYCLOSILICATE 10 GM POWD.PACK PO ONE (11:24)
[2025-05-21] MEDS: IV NS 0.9% 1,000 ML IV PRN (14:18)
[2025-05-21 16:00] VITALS: BP 124/59; TEMP 97.5; O2SAT 94
[2025-05-21 16:24] LABS: CALCIUM, SERUM 8.8 mg/dL (8.5-10.1); CREATININE 1.9 mg/dL (0.6-1.3); SODIUM SERUM 140.0 mmol/L (136-145); UREA NITROGEN, BLOOD 44.0 mg/dL (7-18)
[2025-05-21 20:24] VITALS: BP 148/61; TEMP 98.4; O2SAT 92
[2025-05-22 07:03] LABS: CALCIUM, SERUM 8.7 mg/dL (8.5-10.1); CREATININE 1.9 mg/dL (0.6-1.3); SODIUM SERUM 144.0 mmol/L (136-145); UREA NITROGEN, BLOOD 43.0 mg/dL (7-18)
[2025-05-22 07:20] LABS: PLATELET COUNT (AUTO) 167 K/uL (150-450); RED BLOOD CELL COUNT(AUTO) 3.48 MIL/uL (4.0-5.2); RED CELL DISTRIBUTION WIDTH 14.5 % (11.5-15.0); WHITE BLOOD COUNT (AUTO) 4.9 K/uL (4.3-11.0)
[2025-05-22 07:31] LABS: CREATINE KINASE, TOTAL 48.0 U/L (26-192)
[2025-05-22 08:00] VITALS: BP 171/65; TEMP 98.1; O2SAT 94
[2025-05-22] MEDS: LIDOCAINE 5% (PATCH) 1 EA PATCH TP SCH (10:23)
[2025-05-22 16:08] VITALS: BP 168/77; TEMP 98.1; O2SAT 94
[2025-05-22 20:00] VITALS: BP 152/78; TEMP 97.8; O2SAT 93
[2025-05-23 07:00] VITALS: BP 172/67; TEMP 98; O2SAT 94
[2025-05-23 07:02] LABS: CALCIUM, SERUM 8.9 mg/dL (8.5-10.1); CREATININE 1.8 mg/dL (0.6-1.3); SODIUM SERUM 144.0 mmol/L (136-145); UREA NITROGEN, BLOOD 39.0 mg/dL (7-18)
[2025-05-23 07:29] LABS: PLATELET COUNT (AUTO) 159 K/uL (150-450); RED BLOOD CELL COUNT(AUTO) 3.50 MIL/uL (4.0-5.2); RED CELL DISTRIBUTION WIDTH 14.6 % (11.5-15.0); WHITE BLOOD COUNT (AUTO) 5.6 K/uL (4.3-11.0)
[2025-05-23 08:00] VITALS: BP_SYST 172; BP_SYST 181; BP_DIAS 58; BP_DIAS 67; TEMP 98.1; O2SAT 94
[2025-05-23] MEDS: CLONIDINE HCL 0.1 MG TABLET PO PRN (09:07)
[2025-05-23] MEDS ORDERED: LIDO30AD10 TP (10:07)
[2025-05-23] MEDS ORDERED: CEFT1FRO2 IV (10:07)
[2025-05-23] MEDS ORDERED: CYCL10TA9 PO (10:07)
[2025-05-23 13:16] VITALS: BP 174/75; TEMP 98.2; O2SAT 94
[2025-05-23 14:11] VITALS: BP 171/45
[2025-05-23 14:36] VITALS: BP 171/45
[2025-05-23] MEDS: hydrALAZINE HCL IV 20 MG VIAL IV ONE (14:36)
[2025-05-24 16:07] LABS: METHYLMALONIC ACID 437.0 nmol/L (0-378)
[2025-05-25] MEDS ORDERED: ERGOCALCIFEROL (VITAMIN D 2) 50,000 UNIT CAPSULE PO SCH (07:30)
[2025-05-25] MEDS ORDERED: ALENDRONATE 70 MG TABLET PO SCH (07:30)
== END 2025-05-23 15:00 | DRG 542 ==
LOC: ER 13:43 → MED 17:34
PROVIDERS: ADMIT Nurse Practitioner Family; ATTEND Nurse Practitioner Acute Care
DX: M48.54XA Collapsed vertebra, not elsewhere classified, thoracic region, initial encounter for fracture (principal); G92.8 Other toxic encephalopathy; N17.0 Acute kidney failure with tubular necrosis; G83.4 Cauda equina syndrome; M62.82 Rhabdomyolysis; M51.372 Other intervertebral disc degeneration, lumbosacral region with discogenic back pain and lower extremity pain; M48.062 Spinal stenosis, lumbar region with neurogenic claudication; R26.9 Unspecified abnormalities of gait and mobility; I16.0 Hypertensive urgency; M47.816 Spondylosis without myelopathy or radiculopathy, lumbar region; E11.22 Type 2 diabetes mellitus with diabetic chronic kidney disease; E66.01 Morbid (severe) obesity due to excess calories; E78.5 Hyperlipidemia, unspecified; G89.29 Other chronic pain; Z79.4 Long term (current) use of insulin; Z79.84 Long term (current) use of oral hypoglycemic drugs; Z86.73 Personal history of transient ischemic attack (TIA), and cerebral infarction without residual deficits; I12.9 Hypertensive chronic kidney disease with stage 1 through stage 4 chronic kidney disease, or unspecified chronic kidney disease; N18.9 Chronic kidney disease, unspecified; Z91.81 History of falling; R53.1 Weakness; E11.65 Type 2 diabetes mellitus with hyperglycemia; D63.8 Anemia in other chronic diseases classified elsewhere; N32.81 Overactive bladder; Z68.37 Body mass index [BMI] 37.0-37.9, adult; K40.90 Unilateral inguinal hernia, without obstruction or gangrene, not specified as recurrent; F03.90 Unspecified dementia, unspecified severity, without behavioral disturbance, psychotic disturbance, mood disturbance, and anxiety; B96.20 Unspecified Escherichia coli [E. coli] as the cause of diseases classified elsewhere; K21.9 Gastro-esophageal reflux disease without esophagitis; W18.30XA Fall on same level, unspecified, initial encounter; Y93.9 Activity, unspecified; Y92.009 Unspecified place in unspecified non-institutional (private) residence as the place of occurrence of the external cause; N30.80 Other cystitis without hematuria; M48.07 Spinal stenosis, lumbosacral region; M47.897 Other spondylosis, lumbosacral region; E11.42 Type 2 diabetes mellitus with diabetic polyneuropathy
CPT/HCPCS: 36415; 70450-TC; 72100-TC; 72148-TC; 76770-TC; 80048-TC; 80053-TC; 80061-TC; 80076-TC; 81001; 82550-TC; 82570-TC; 82607-TC; 82962-TC; 83735-TC; 83921; 83970; 84100-TC; 84155; 84165; 84300-TC; 84425; 84443-TC; 85025-TC; 87086-TC; 87186-TC; 93970-TC; 97110-TC; 97116-TC; 97530-TC; 97535-TC; A4223; G0378; J0360; J0696; J1815; J7030; J7060